=== PATIENT | female | born 1990 | race Caucasian/White ===

== ENCOUNTER 2017-02-14 17:29 | Emergency (ER) | payer OTHER ==
[~2017-02-14] VITALS: Ht 177.8 cm; Wt 65.9 kg
[~2017-02-14 17:29] MED LIST: ONDA-54 PO
[2017-02-14 17:43] VITALS: BP 105/77; PULSE 87; RESP 18; O2SAT 98
--- NOTE | 2017-02-14 17:44 | ED.REPORT ---
HPI-General Illness Date of Service Feb 14, 2017 ED Provider: Giancarlo Mcgarry MD The patient is an otherwise healthy 26 year old female who presents to the emergency department after she stuck her left thumb with a needle. She was giving a medication when she accidentally stuck her thumb with the needle. The person she was giving the injection to had her blood drawn for testing after the injury. The patient denies any other injuries or concerns. Nursing Notes Stated Complaint: NEEDLE STICK Chief Complaint: Post Exposure Body Fluids Nursing Notes Reviewed: Yes Allergies: Coded Allergies: amoxicillin (Verified Allergy, Intermediate, Rash, 02/14/17) Scheduled Ondansetron (Ondansetron) 8 Mg Tablet 8 MG PO TID General Time Seen by MD: 17:42 Chief Complaint Other (needle stick) Hx Obtained From: Patient Arrived By: Walk-in Sudden in Onset?: Yes Onset Occurred: Just prior to arrival Symptom Duration: Since onset Location: : Hand left Quality: Painful Severity: Current: No pain currently Severity: Maximum: Mild Recent Healthcare: No recent doctor visit, No recent hospitalization Similar Sx Previous: No Past Medical History Past Medical History Denies Past Surgical History Denies Family History Noncontributory Social History Other Social History: Good social support, Local 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 Physical Exam Vital Signs Vital Signs Date Time Temp Pulse Resp B/P Pulse Ox O2 Delivery O2 Flow Rate FiO2 02/14/17 17:43 37.1 87 18 105/77 98 Room Air see nurses notes Initial VS: Reviewed Head / Eyes: Atraumatic, Normocephalic, PERRL ENT: Mucous membranes moist, Conjunctiva normal, No scleral icterus Neck: Supple, Non-tender, Full range of motion Respiratory: Breath sounds normal, Clear to auscultation, No respiratory distress Cardiovascular: Regular rate & rhythm, Heart sounds normal, Intact distal pulses Abdomen / GI: No distention Extremities: Vascular intact, Neuro intact, No swelling, No tenderness Skin: Warm, Dry, No cyanosis Neurologic: Alert, Oriented, Nonfocal Psychiatric: Mood/affect normal, Behavior normal, Normal thought content General/Constitutional: Awake, Alert, Well appearing Wrist / Hand: Neurologic intact, Vascular intact There is a small puncture wound on the left distal thumb. 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 The source was reportedly drawn. The patient was drawn. She was given paperwork to fill out and follow-up with occupational health tomorrow. Source of Hx: Old records Time of Eval: 17:46 Re-Evaluation/Progress Note: Discussed plan for discharge. All questions were addressed. Counseled Regarding: Diagnosis, Need for follow-up, When/why to return to ED Discharge & Departure Primary Impression: Needle stick injury Encounter type: initial encounter Qualified Code: W27.3XXA - Contact with needle (sewing), initial encounter Disposition: Home Discharge Condition All VS Reviewed: Yes Condition: Stable Patient Instructions: Needle Stick Injuries (ED) Additional Instructions: Thank you for entrusting us with your care today. You will need to call employee health in the morning to followup. Seek care for any new or concerning symptoms. Referrals: Dinora Mcmullen MD (PCP) Scribe Attestation Portions of this note were transcribed by Korin Blakely. I, Dr. Mcgarry personally performed the history, physical exam and medical decision-making; I reviewed and confirmed the accuracy of the information in the transcribed note. Signed by: Jayne Garcia, 02/14/2017 at 1800. copies to: Dinora Mcmullen MD, Ben M MD Feb 14, 2017 17:44 Korin Blakely Feb 14, 2017 17:50
== END 2017-02-14 18:00 | disposition home or self-care (01) ==
LOC: SED 17:30
DX: S61.032A Puncture wound without foreign body of left thumb without damage to nail, initial encounter (principal); W46.1XXA Contact with contaminated hypodermic needle, initial encounter; Y92.239 Unspecified place in hospital as the place of occurrence of the external cause; Y93.89 Activity, other specified; Y99.0 Civilian activity done for income or pay; Z77.21 Contact with and (suspected) exposure to potentially hazardous body fluids; Z88.0 Allergy status to penicillin